=== PATIENT | female | born 1995 | race Asian ===

== ENCOUNTER 2017-08-20 12:14 | Observation (INO) | payer OTHER ==
[~2017-08-20] VITALS: Ht 160 cm; Wt 55.3 kg
[2017-08-20] MEDS ORDERED: FERR-252 PO (13:20)
[2017-08-20 13:31] VITALS: BP 121/76
== END 2017-08-20 13:45 | disposition home or self-care (01) ==
LOC: MLD 12:14
PROVIDERS: ADMIT Obstetrics & Gynecology; ATTEND Obstetrics & Gynecology
DX: O36.8190 Decreased fetal movements, unspecified trimester, not applicable or unspecified (principal); Z3A.00 Weeks of gestation of pregnancy not specified
CPT/HCPCS: G0378

== ENCOUNTER 2017-08-27 12:42 | Observation (INO) | payer OTHER ==
[~2017-08-27] VITALS: Ht 160 cm; Wt 56.7 kg
[~2017-08-27 12:42] MED LIST: FERR-252 PO
[2017-08-27 13:19] VITALS: BP 122/76
== END 2017-08-27 15:00 | disposition home or self-care (01) ==
LOC: MLD 12:42
PROVIDERS: ADMIT Obstetrics & Gynecology; ATTEND Obstetrics & Gynecology
DX: O36.8130 Decreased fetal movements, third trimester, not applicable or unspecified (principal); Z3A.38 38 weeks gestation of pregnancy
CPT/HCPCS: 76819; 81000; G0378; Q0092

== ENCOUNTER 2017-09-03 12:47 | Observation (INO) | payer OTHER ==
[~2017-09-03] VITALS: Ht 160 cm; Wt 57.2 kg
[2017-09-03] MEDS ORDERED: PREN-546 PO (13:14)
[2017-09-08] MEDS ORDERED: IBUP-2218 PO (08:48)
== END 2017-09-03 15:30 | disposition home or self-care (01) ==
LOC: MLD 12:47
PROVIDERS: ADMIT Obstetrics & Gynecology; ATTEND Obstetrics & Gynecology
DX: O26.893 Other specified pregnancy related conditions, third trimester (principal); R10.9 Unspecified abdominal pain; Z3A.35 35 weeks gestation of pregnancy
CPT/HCPCS: 59025; 81000; G0378

== ENCOUNTER 2022-06-16 22:25 | Emergency (ER) | payer OTHER ==
[~2022-06-16] VITALS: Ht 160 cm; Wt 44.5 kg
[~2022-06-16 22:25] MED LIST changes: -FERR-252 PO; +IBUP-2218 PO; +PREN-546 PO
[2022-06-16 22:35] VITALS: BP 124/80
--- NOTE | 2022-06-16 22:38 | NUR ---
TO LOBBY A/W BED AMBULATORY
--- NOTE | 2022-06-17 00:20 | NUR ---
JAZZY WISE, ASSESSING PATIENT IN [facility]
[2022-06-17] MEDS ORDERED: KETOROLAC 30 MG/ML VIAL IVP ONE (00:30)
[2022-06-17] MEDS ORDERED: NACL 0.9% 1,000 ML IV ONE (00:30)
--- NOTE | 2022-06-17 00:30 | NUR ---
PT MOVED TO ER BED 9
[2022-06-17] MEDS ORDERED: CODE10LI2 PO (00:31)
[2022-06-17] MEDS ORDERED: DOXY-690 PO (00:31)
[2022-06-17] MEDS ORDERED: ALBU0.0912 IH (00:31)
[2022-06-17] MEDS ORDERED: ROBAC PO (00:33)
[2022-06-17 02:21] VITALS: BP 124/80
--- NOTE | 2022-06-17 02:21 | NUR ---
Patient discharged with v/s stable. Written and verbal after care instructions given and explained. Patient alert, oriented and verbalized understanding of instructions. Ambulatory with steady gait. All questions addressed prior to discharge. ID band removed. Patient advised to follow up with PMD. Rx of PROVENTIL HFA, DOXYCYCLINE, GUAIFENESIN WITH CODEINE given. Patient educated on indication of medication including possible reaction and side effects. Opportunity to ask questions provided and answered.
== END 2022-06-17 02:21 | disposition home or self-care (01) ==
LOC: MED 22:25
DX: J40 Bronchitis, not specified as acute or chronic (principal); Z20.822 Contact with and (suspected) exposure to COVID-19
CPT/HCPCS: 81025; 87081; 87426; 87804; 96374; 99283; J1885; J7030; 96361